=== PATIENT | female | born 1985 | race Caucasian/White ===

== ENCOUNTER 2023-06-20 08:15 | Emergency (ER) | payer BC ==
[~2023-06-20] VITALS: Ht 170.2 cm; Wt 86.3 kg
[~2023-06-20 08:15] MED LIST: ALBU18HF2 INH
[2023-06-20] MEDS: cyclobenzaprine 10mg tablet PO ONE (11:23)
[2023-06-20] MEDS: HYDROcodone/acetaminophen 5mg/325mg tablet PO ONE (11:24)
[2023-06-20] MEDS: dexamethasone sod phosphate 10mg/ml inj PO STA (11:24)
[2023-06-20] MEDS: ketorolac trometh inj. 60 MG/2 ML VIAL IM ONE (11:24)
[2023-06-20 12:16] VITALS: BP 116/71; PULSE 65; RESP 16; TEMP 98.2; O2SAT 98
[2023-06-20] MEDS ORDERED: LIDO700A32 TOP (12:17)
[2023-06-20] MEDS ORDERED: CYCL-1 PO (12:17)
== END 2023-06-20 12:20 | disposition home or self-care (01) ==
LOC: ER 08:15
DX: S39.012A Strain of muscle, fascia and tendon of lower back, initial encounter (principal); X58.XXXA Exposure to other specified factors, initial encounter; Y93.89 Activity, other specified; Y92.89 Other specified places as the place of occurrence of the external cause; Y99.8 Other external cause status
CPT/HCPCS: 72100; 96372; 99284; J1100; J1885